=== PATIENT | female | born 1995 | race African-American/Black ===

== ENCOUNTER 2016-07-08 10:03 | Emergency (ER) | payer MEDICAID ==
[~2016-07-08] VITALS: Ht 162.6 cm; Wt 73.0 kg
[~2016-07-08 10:03] MED LIST: DIPH25CA83
[2016-07-08 10:26] VITALS: BP 115/71
== END 2016-07-08 12:13 | disposition home or self-care (01) ==
LOC: ER 12:13
DX: J06.9 Acute upper respiratory infection, unspecified (principal)
CPT/HCPCS: 99283

== ENCOUNTER 2017-06-19 09:14 | Emergency (ER) | payer MEDICAID ==
[~2017-06-19] VITALS: Ht 162.6 cm; Wt 80.0 kg
[2017-06-19] MEDS ORDERED: DIPHENHYDRAMINE 25MG CAPSULE PO ONE (12:15)
[2017-06-19 13:46] VITALS: BP 107/68
== END 2017-06-19 13:49 | disposition home or self-care (01) ==
LOC: ER 09:32
DX: L50.0 Allergic urticaria (principal); Z91.048 Other nonmedicinal substance allergy status
CPT/HCPCS: 99283; Q0163

== ENCOUNTER 2017-07-13 17:09 | Emergency (ER) | payer MEDICAID ==
[~2017-07-13] VITALS: Ht 162.6 cm; Wt 79.0 kg
[2017-07-13 17:47] LABS: KETONES URINE TRACE (NEGATIVE); LEUKOCYTE ESTERASE URINE 2+ (NEGATIVE); NITRITE URINE NEGATIVE (NEGATIVE); OCCULT BLOOD URINE NEGATIVE (NEGATIVE); PROTEIN URINE NEGATIVE (NEGATIVE); SPECIFIC GRAVITY URINE 1.028 (1.005-1.030); UROBILINOGEN URINE 0.2 E.U./dL (0.2-1.0)
[2017-07-13 17:52] LABS: CLARITY URINE CLEAR (CLEAR); COLOR URINE YELLOW (YELLOW)
[2017-07-13] MEDS ORDERED: CEFTRIAXONE SODIUM 250 MG/VIAL IM ONE (22:15)
[2017-07-13] MEDS ORDERED: AZITHROMYCIN 500 MG TABLET PO ONE (22:15)
[2017-07-13] MEDS ORDERED: LIDOCAINE HCL 1% 20ML VIAL (Pyxis) INJ INFIL ONE (23:15)
[2017-07-13] MEDS ORDERED: LIDOCAINE HCL/PF 1% 10 MG/ML 5ML VIAL IJ NR (23:30)
[2017-07-14 01:25] VITALS: BP 106/63
== END 2017-07-14 01:40 | disposition home or self-care (01) ==
LOC: ER 17:51
DX: A60.00 Herpesviral infection of urogenital system, unspecified (principal); A64 Unspecified sexually transmitted disease; N89.8 Other specified noninflammatory disorders of vagina
CPT/HCPCS: 81003; 81025; 87210; 96372; 99284; J0696; J3490; 87491; 87591

== ENCOUNTER 2017-12-13 18:46 | Emergency (ER) | payer MEDICAID ==
[~2017-12-13] VITALS: Ht 162.6 cm; Wt 75.0 kg
[2017-12-13 20:14] VITALS: BP 120/82
== END 2017-12-13 20:21 | disposition home or self-care (01) ==
LOC: ER 18:53
DX: B00.9 Herpesviral infection, unspecified (principal)
CPT/HCPCS: 81025; 99283

== ENCOUNTER 2018-06-10 18:05 | Emergency (ER) | payer MEDICAID ==
[~2018-06-10] VITALS: Ht 162.6 cm; Wt 78.0 kg
[2018-06-10 18:55] LABS: CLARITY URINE CLEAR (CLEAR); COLOR URINE YELLOW (YELLOW); KETONES URINE TRACE (NEGATIVE); LEUKOCYTE ESTERASE URINE NEGATIVE (NEGATIVE); NITRITE URINE NEGATIVE (NEGATIVE); OCCULT BLOOD URINE NEGATIVE (NEGATIVE); PROTEIN URINE NEGATIVE (NEGATIVE); SPECIFIC GRAVITY URINE 1.034 (1.005-1.030)
[2018-06-10 22:00] VITALS: BP 123/76
== END 2018-06-10 22:06 | disposition home or self-care (01) ==
LOC: ER 18:05
DX: A60.00 Herpesviral infection of urogenital system, unspecified (principal); Z76.0 Encounter for issue of repeat prescription; Z91.09 Other allergy status, other than to drugs and biological substances; Z82.49 Family history of ischemic heart disease and other diseases of the circulatory system
CPT/HCPCS: 81025; 99283

== ENCOUNTER 2018-12-26 10:08 | Emergency (ER) | payer MEDICAID ==
[~2018-12-26] VITALS: Ht 162.6 cm; Wt 83.0 kg
[2018-12-26 11:38] LABS: CLARITY URINE CLOUDY (CLEAR); COLOR URINE YELLOW (YELLOW); KETONES URINE 1+ (NEGATIVE); LEUKOCYTE ESTERASE URINE TRACE (NEGATIVE); NITRITE URINE NEGATIVE (NEGATIVE); OCCULT BLOOD URINE NEGATIVE (NEGATIVE); PH URINE 5.5 (4.5-8.0); PROTEIN URINE NEGATIVE (NEGATIVE); SPECIFIC GRAVITY URINE 1.028 (1.005-1.030)
[2018-12-26 11:59] VITALS: BP 124/80
== END 2018-12-26 12:03 | disposition home or self-care (01) ==
LOC: ER 10:20
DX: A60.04 Herpesviral vulvovaginitis (principal); Z91.09 Other allergy status, other than to drugs and biological substances
CPT/HCPCS: 81003; 81025; 99283

== ENCOUNTER 2019-03-23 06:31 | Emergency (ER) | payer MEDICAID ==
[~2019-03-23] VITALS: Ht 162.6 cm; Wt 78.7 kg
[2019-03-23 06:40] VITALS: BP 141/84
== END 2019-03-23 07:50 | disposition home or self-care (01) ==
LOC: ER 06:31
DX: A60.00 Herpesviral infection of urogenital system, unspecified (principal); R20.8 Other disturbances of skin sensation
CPT/HCPCS: 99283

== ENCOUNTER 2019-04-20 18:34 | Emergency (ER) | payer MEDICAID ==
[~2019-04-20] VITALS: Ht 162.6 cm; Wt 78.0 kg
[2019-04-20 18:45] VITALS: BP 114/76
[2019-04-20] MEDS ORDERED: ACETAMINOPHEN 325MG TABLET ONE (18:58)
[2019-04-20] MEDS ORDERED: IBUPROFEN 600MG TABLET PO ONE (19:45)
== END 2019-04-20 22:02 | disposition home or self-care (01) ==
LOC: ER 18:34
DX: J98.8 Other specified respiratory disorders (principal); J01.90 Acute sinusitis, unspecified; Z79.899 Other long term (current) drug therapy
CPT/HCPCS: 87070; 87430; 87804; 99283

== ENCOUNTER 2019-08-21 20:55 | Emergency (ER) | payer MEDICAID ==
[~2019-08-21] VITALS: Ht 162.6 cm; Wt 84.9 kg
[2019-08-21] MEDS ORDERED: VALACYCLOVIR HCL 500MG TABLET PO STA (22:26)
[2019-08-21 22:51] VITALS: BP 120/71
== END 2019-08-21 22:51 | disposition home or self-care (01) ==
LOC: ER 20:55
DX: A60.04 Herpesviral vulvovaginitis (principal); Z76.0 Encounter for issue of repeat prescription; Z91.09 Other allergy status, other than to drugs and biological substances
CPT/HCPCS: 81025; 99283

== ENCOUNTER 2020-10-26 21:21 | Emergency (ER) | payer MEDICAID, OTHER ==
[~2020-10-26] VITALS: Ht 162.6 cm; Wt 84.0 kg
[2020-10-26 22:47] VITALS: BP 130/81
[2020-10-26] MEDS ORDERED: IBUP-2029 MT (23:51)
[2020-10-26] MEDS ORDERED: HYDR453.3 TP (23:51)
[2020-10-26] MEDS ORDERED: ACET-2708 MT (23:51)
== END 2020-10-26 23:57 | disposition home or self-care (01) ==
LOC: ER 22:23
DX: R21 Rash and other nonspecific skin eruption (principal); Z91.09 Other allergy status, other than to drugs and biological substances
CPT/HCPCS: 99281

== ENCOUNTER 2024-03-06 10:57 | Emergency (ER) | payer SELFPAY ==
[~2024-03-06] VITALS: Ht 167.6 cm; Wt 75.0 kg
[~2024-03-06 10:57] MED LIST changes: +ACET-2708 MT; +HYDR453.3 TP; +IBUP-2029 MT
[2024-03-06 11:19] VITALS: BP 137/95; PULSE 88; RESP 18; TEMP 98.4; O2SAT 100
== END 2024-03-06 16:12 | disposition home or self-care (01) ==
LOC: ER 10:57
DX: R21 Rash and other nonspecific skin eruption (principal); Z91.048 Other nonmedicinal substance allergy status; F15.10 Other stimulant abuse, uncomplicated
CPT/HCPCS: 99281; 99282